=== PATIENT | male | born 1985 | race Caucasian/White ===

== ENCOUNTER 2016-08-17 22:02 | Emergency (ER) | payer BC, OTHER ==
[~2016-08-17] VITALS: Ht 170.2 cm; Wt 59.0 kg
[~2016-08-17 22:02] MED LIST: KEPPRA 500 MG500 M1 PO
[2016-08-17] MEDS ORDERED: COLACE100 MG PO (23:50)
== END 2016-08-18 | disposition home or self-care (01) ==
LOC: ER 22:02
DX: K59.00 Constipation, unspecified (principal); Z98.890 Other specified postprocedural states; F17.210 Nicotine dependence, cigarettes, uncomplicated; F10.99 Alcohol use, unspecified with unspecified alcohol-induced disorder